=== PATIENT | female | born 1945 | race Two or more races ===

== ENCOUNTER 2019-06-29 13:58 | Emergency (ER) | payer MEDICAID ==
[~2019-06-29] VITALS: Ht 154.9 cm; Wt 51.7 kg
--- NOTE | 2019-06-29 14:30 | Emergency Room Report ---
History of Present Illness General Chief Complaint: Shortness of breath Present Illness HPI Patient is a 73-year-old female presents after increased left-sided chest pain for the past 2 days. She reports having some prior history of cardiac arrhythmia. She states she had recently had a cardiac work-up which was unremarkable. She denies any cough or Nasal congestion. She had not been having any fever. She denies any breast pain. She had previously been a smoker many years ago but is not currently a smoker. Reports having increased pain with movements.She denies any vomiting or diarrhea. She not been having any bloody stools.Pain is sharp in nature. Allergies: Coded Allergies: CODEINE (Verified Allergy, Unknown, 06/29/19) Patient History Past Medical History: see triage record Reviewed Nursing Documentation: PMH: Agreed; PSxH: Agreed Review of Systems All Other Systems: negative except mentioned in HPI Physical Exam Sp02 EP Interpretation: reviewed, normal General Appearance: normal inspection, well appearing, no apparent distress, alert, GCS 15 Head: atraumatic ENT: normal ENT inspection, hearing grossly normal, normal voice Neck: normal inspection, full range of motion, supple, no bony tend Respiratory: normal inspection, lungs clear, normal breath sounds, no respiratory distress, no retraction, no wheezing Cardiovascular #1: regular rate, rhythm, no edema Gastrointestinal: normal inspection, normal bowel sounds, non tender, soft, no guarding, no hernia Genitourinary: no CVA tenderness Musculoskeletal: normal inspection, back normal, normal range of motion Neurologic: alert, motor strength/tone normal, 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 Differential diagnosis include was not limited to myocardial infarction, pneumonia, pulmonary embolism among others. Because of complexity of patient's case laboratory tests and imaging studies were ordered. Patient was noted to have pleuritic type chest pain. EKG interpreted by me showed normal sinus rhythm with a rate of [address] changesPatient was offered laboratory testing which she declined. Patient states she always has an abnormal EKG. She is unclear as to what this abnormality is. Patient was advised that since this is unknown we should have further work-up at this time.Patient does not have any known risk factor for PE. However given the abnormalities at the EKG . 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 Patient states that she had also had a recent treadmill test which was negative.Her symptoms appear to be chest wall related. Patient declines further work-up. She appears to be able to make her own decisions. Patient will be discharged home. She will be given prescription for medications for symptomatic treatment. She was advised to follow-up with her primary care physician. Patient was advised to return if she changes her mind or felt worse. EKG Diagnostic Results Rate: normal Rhythm: NSR ST Segments: other - Inferior T wave inversion. Status: unchanged Disposition: HOME, SELF-CARE Condition: Stable Scripts Ibuprofen (Ibuprofen) 400 Mg Tablet 400 MG PO EVERY 8 HOURS, #30 TAB Prov: Max Rivero MD 06/29/19 Max Rivero MD Jun 29, 2019 14:30
[2019-06-29 14:35] VITALS: BP 182/93
--- NOTE | 2019-06-29 14:35 | NUR ---
ED Nurse Note: Pt ambulated into ER accompanied by daughter for complains of side pain that she noticed when she was reaching for something 2 days ago. Pt reports pain /. Pt states that pain radiates to left arm. Pt denies indigestion, n/v, weakness, dizziness.
--- NOTE | 2019-06-29 15:29 | NUR ---
ED Nurse Note: ERMD at bedside
--- NOTE | 2019-06-29 15:40 | NUR ---
ED Nurse Note: ERMD notified pt of treatment plan and pt refused further treatment, requested a second opinion.
[2019-06-29] MEDS ORDERED: IBUPROFEN600 MG ORAL (15:43)
[2019-06-29] MEDS ORDERED: IBUPROFEN400 M1 PO (15:45)
[2019-06-29 16:00] VITALS: BP 172/80
--- NOTE | 2019-06-29 16:00 | NUR ---
AMA: SEE AMA FORM.
--- NOTE | 2019-06-29 16:05 | NUR ---
ER DISCHARGE NOTE: Pt left AMA and signed form. Pt left premises with daughter. pt is aox4, on room air, with stable vital signs. pt was given dc and prescription instructions, pt was able to verbalize understanding, pt id band removed without complications. pt is able to ambulate with steady gait. pt took all belongings.
--- NOTE | 2019-06-29 17:00 | Diagnostic Imaging Report ---
EXAM: XR Chest, 1 View CLINICAL HISTORY: Shortness of breath TECHNIQUE: Frontal view of the chest. COMPARISON: No relevant prior studies available. FINDINGS: Lungs: Unremarkable. The lungs appear clear. No focal consolidation. Pleural space: Unremarkable. The costophrenic angles are sharp. No visible pneumothorax. Heart: Unremarkable. No cardiomegaly. Mediastinum: Unremarkable. Bones/joints: Unremarkable. Tubes, lines and devices: Telemetry leads overlie the thorax. Upper abdomen: Surgical clips in the right upper abdominal quadrant suggest prior cholecystectomy. IMPRESSION: No acute findings.
== END 2019-06-29 16:00 | disposition home or self-care (01) ==
LOC: EMR 15:55
DX: R07.89 Other chest pain (principal); Z88.6 Allergy status to analgesic agent; Z87.891 Personal history of nicotine dependence
CPT/HCPCS: 71045; Z7502; 99283